=== PATIENT | female | born 1990 | race Hispanic/Latino ===

== ENCOUNTER 2024-02-05 17:17 | Emergency (ER) | payer SELFPAY ==
--- NOTE | 2024-02-05 18:47 | RAD REPORT ---
Exam:Foot Right 3 View CLINICAL HISTORY: Right foot pain FINDINGS: No fracture or dislocation seen
--- NOTE | 2024-02-05 18:50 | ER ---
Nurse's Notes [facility] Name: Evelyn Landis Age: 34 yrs Sex: Female : 1990 Arrival Date: 02/05/2024 Time: 17:17 Bed DX4 Private MD: Diagnosis: Contusion of right foot Presentation: 02/04 17:56 Chief complaint: Patient states: fell out of bed attempting to turn ceiling fan light aa5 on last night. Coronavirus screen: At this time, the client does not indicate any symptoms associated with coronavirus-19. Ebola Screen: Patient denies travel to an Ebola-affected area in the 21 days before illness onset. Initial Sepsis Screen: Does the patient meet any 2 criteria? No. Patient's initial sepsis screen is negative. Does the patient have a suspected source of infection? No. Patient's initial sepsis screen is negative. Risk Assessment: Do you want to hurt yourself or someone else? Patient reports no desire to harm self or others. Onset of symptoms was February 2024. 17:56 Acuity: SUHAIL 4 aa5 17:56 Method Of Arrival: Ambulatory aa5 Historical: - Allergies: 17:56 morphine (Hives); aa5 - PMHx: 17:56 None; aa5 - PSHx: 17:56 None; aa5 - Immunization history:: Adult Immunizations unknown. - Infectious Disease History:: Denies. - Social history:: Smoking status: Patient reports the use of cigarette tobacco products. Vital Signs: 17:56 BP 107 / 91; Pulse 62; Resp 18 S; Temp 97.8(TE); Pulse Ox 100% on R/A; Weight 45.36 kg aa5 (R); Height 5 ft. 1 in. (R); 17:56 Body Mass Index 18.89 (45.36 kg, 154.94 cm) aa5 ED Course: 17:21 Patient arrived in ED. ra3 17:28 [place] PA-C is PHCP. sb4 17:28 Ramesh Lindsay MD is Attending Physician. sb4 17:56 Arm band placed on. aa5 17:58 Triage completed. aa5 18:26 Foot Right 3 View XRAY In Process Unspecified. EDMS 18:49 Julio Shen MD is Referral Physician. sb4 Administered Medications: No medications were administered Outcome: 18:50 Discharge ordered by . sb4 20:17 Patient left the ED. vc1 Signatures: Dispatcher [employer] EDAmy Crawford RN RN aa5 Yanelis Esquivel RN RN vc1 [place], PASandro PASandro sb4 Jenny Morelos
--- NOTE | 2024-02-05 18:50 | EDPHYS ---
Physician Documentation [facility] Name: Evelyn Landis Age: 34 yrs Sex: Female : 1990 Arrival Date: 02/05/2024 Time: 17:17 Bed DX4 Private MD: ED Physician Ramesh Lindsay HPI: 02/04 18:02 This 34 yrs old Female presents to ER via Ambulatory with complaints of Foot sb4 Injury - Right. 18:02 The patient presents with an injury, pain, that is acute. The complaints affect the sb4 lateral aspect of right foot. Context: The problem was sustained at home, resulted from the patient falling, the patient can partially bear weight, the patient is able to ambulate, with moderate difficulty, Problem is a result from a previous injury: No. Onset: The symptoms/episode began/occurred this morning. Modifying factors: The symptoms are alleviated by remaining still, the symptoms are aggravated by movement, weight bearing. Associated signs and symptoms: The patient has no apparent associated signs or symptoms. Treatment prior to arrival includes: no previous treatment. The patient has not experienced similar symptoms in the past. Historical: - Allergies: 17:56 morphine (Hives); aa5 - PMHx: 17:56 None; aa5 - PSHx: 17:56 None; aa5 - Immunization history:: Adult Immunizations unknown. - Infectious Disease History:: Denies. - Social history:: Smoking status: Patient reports the use of cigarette tobacco products. ROS: 18:02 Constitutional: Negative for fever, chills, and weight loss, sb4 18:02 MS/extremity: Positive for injury or acute deformity, pain, swelling, tenderness, of the lateral aspect of right foot, 18:02 All other systems are negative, Exam: 18:03 Constitutional: This is a well developed, well nourished patient who is awake, alert, sb4 and in no acute distress. Head/Face: Normocephalic, atraumatic. Eyes: Extra-ocular motions intact. Periorbital areas with no swelling, redness, or edema. ENT: Mucous membranes moist. 18:03 Musculoskeletal/extremity: swelling/bruising right lateral foot. toes and ankle with normal ROM. pedal pulses intact. Vital Signs: 17:56 BP 107 / 91; Pulse 62; Resp 18 S; Temp 97.8(TE); Pulse Ox 100% on R/A; Weight 45.36 kg aa5 (R); Height 5 ft. 1 in. (R); 17:56 Body Mass Index 18.89 (45.36 kg, 154.94 cm) aa5 MDM: 17:55 Medical Screening Exam initiated sb4 18:49 Data reviewed: vital signs, nurses notes, radiologic studies, and as a result, I will sb4 discharge patient. Counseling: I had a detailed discussion with the patient and/or guardian regarding the historical points, exam findings, and any diagnostic results supporting the discharge/admit diagnosis, radiology results, to return to the emergency department if symptoms worsen or persist or if there are any questions or concerns that arise at home. 02/04 17:58 Order name: Foot Right 3 View XRAY; Complete Time: 18:49 aa5 02/04 18:52 Order name: Walking boot; Complete Time: 20:16 sb4 Administered Medications: No medications were administered Disposition Summary: 02/05/24 18:50 Discharge Ordered Notes: Location: Home sb4 Problem: new sb4 Symptoms: are unchanged sb4 Condition: Stable sb4 Diagnosis - Contusion of right foot sb4 Followup: sb4 - With: Julio Shen MD - When: 1 week - Reason: Recheck today's complaints, Re-evaluation by your physician Discharge Instructions: - Discharge Summary Sheet sb4 - Foot Contusion, [id number] sb4 Forms: - Work release form sb4 - Patient Portal Instructions sb4 - Leadership Thank You Letter sb4 Prescriptions: - meloxicam 7.5 mg Oral tablet - take 1 tablet ORAL route daily; 14 tablet; Refills: 0, Product Selection sb4 Permitted Signatures: Dispatcher [employer] Amy Lopez RN RN aa5 [place] PA-C PASandro sb4 Corrections: (The following items were deleted from the chart) 18:51 18:02 The complaints affect the lateral aspect of left foot, sb4 sb4 18:51 18:02 This 34 yrs old Female presents to ER via Ambulatory with complaints of sb4 Foot Injury - Left. sb4 18:51 18:02 MS/extremity: Positive for injury or acute deformity, pain, swelling, tenderness, sb4 of the lateral aspect of left foot, sb4 18:51 18:03 Musculoskeletal/extremity: swelling/bruising left lateral foot. toes and ankle sb4 with normal ROM. pedal pulses intact. sb4
[2024-02-05 22:00] VITALS: BP 107/91; TEMP 97.8; O2SAT 100
== END 2024-02-05 20:17 | disposition home or self-care (01) ==
LOC: ER 17:17
DX: S90.31XA Contusion of right foot, initial encounter (principal)
CPT/HCPCS: 99281